=== PATIENT | female | born 1945 | race Caucasian/White ===

== ENCOUNTER 2021-12-27 09:08 | Outpatient (REF) | payer MEDICARE, SELFPAY ==
--- NOTE | ~2021-12-27 | XR_ITS ---
EXAMINATION: XR knee LT 3V, XR knee RT 3V CLINICAL INFORMATION: Reason for Exam M25.561 - Pain in right knee COMPARISON: None available at the time of this dictation. TECHNIQUE: frontal, lateral, tunnel and patella sunrise views FINDINGS: BONES: No fracture or dislocation is present. JOINTS: Narrowing of joint spaces and developed osteophytes from the edges of articular surfaces suggest degenerative osteoarthritis. SOFT TISSUE: Normal XR/XR knee LT 3V IMPRESSION: Mild bilateral tricompartment degenerative osteoarthritis. No significant joint effusion.
--- NOTE | ~2021-12-27 | XR_ITS ---
EXAMINATION: XR SHOULDER, LEFT CLINICAL INFORMATION: Pain. COMPARISON: None available at the time of this dictation. TECHNIQUE: AP external rotation, Grashey, scapular Y, and axillary views of the shoulder. FINDINGS: BONES: There is no fracture or dislocation, no osteolytic or osteoblastic lesion. JOINTS: Glenohumeral joint is properly positioned. There is mild degenerative osteoarthritis of the acromioclavicular joint. SOFT TISSUE AND INCLUDED LUNG: Soft tissue calcification around the humeral head suggesting calcific tendinosis. XR/XR shoulder LT min 2V IMPRESSION: Soft tissue calcification around humeral head suggesting calcific tendinosis. Mild degenerative joint disease, acromioclavicular joint.
--- NOTE | ~2021-12-27 | XR_ITS ---
EXAMINATION: XR knee LT 3V, XR knee RT 3V CLINICAL INFORMATION: Reason for Exam M25.561 - Pain in right knee COMPARISON: None available at the time of this dictation. TECHNIQUE: frontal, lateral, tunnel and patella sunrise views FINDINGS: BONES: No fracture or dislocation is present. JOINTS: Narrowing of joint spaces and developed osteophytes from the edges of articular surfaces suggest degenerative osteoarthritis. SOFT TISSUE: Normal XR/XR knee RT 3V IMPRESSION: Mild bilateral tricompartment degenerative osteoarthritis. No significant joint effusion.
== END 2021-12-27 09:09 | disposition home or self-care (01) ==
LOC: HO.XRAY 09:08
PROVIDERS: PCP Internal Medicine; Visit Provider Nurse Practitioner Family
DX: M25.512 Pain in left shoulder (principal); M17.0 Bilateral primary osteoarthritis of knee; M25.561 Pain in right knee; M25.562 Pain in left knee; M47.27 Other spondylosis with radiculopathy, lumbosacral region; G89.29 Other chronic pain; M54.9 Dorsalgia, unspecified; M81.0 Age-related osteoporosis without current pathological fracture
CPT/HCPCS: 73030; 73562; 99202